=== PATIENT | female | born 1955 | race African-American/Black ===

== ENCOUNTER → 2020-06-07 | Outpatient (CLI) | payer OTHER, BC ==
[~2020-06-07] MED LIST: BIOTIN1 M1 PO; FISH OIL 1,0001 EAC9 PO; REPATHA SU140 MG/1 M SUBQ; VITAMIN D310 MC2 PO; VITAMIN E1000 UNIT PO; ZANAFLEX4 M1 PO
== END ==
LOC: SJCVCIMAG 07:24
PROVIDERS: ATTEND Internal Medicine
DX: R06.00 Dyspnea, unspecified (principal); R53.83 Other fatigue; R00.2 Palpitations; R00.1 Bradycardia, unspecified; E78.5 Hyperlipidemia, unspecified; Z79.891 Long term (current) use of opiate analgesic

== ENCOUNTER → 2020-06-13 | Outpatient (CLI) | payer OTHER, BC | LOC: LAB 14:24 | PROVIDERS: ATTEND Internal Medicine Cardiovascular Disease | DX: Z01.812 Encounter for preprocedural laboratory examination (principal); Z20.822 Contact with and (suspected) exposure to COVID-19 ==

== ENCOUNTER → 2020-06-18 | Outpatient (CLI) | payer OTHER, BC ==
[~2020-06-18] VITALS: Ht 160 cm; Wt 75.7 kg
--- NOTE | ~2020-06-18 | P ---
[facility] [place] [address] PROCEDURE REPORT Name: KAROLYN BURNS Room #: REG DEBBIE SonjaSonja#: [id number] Admission: 06/18/20 Attend Phys: Jorge Santiago MD Discharge: Date of : 55 Report #: [id number] THIS REPORT FOR: cc: Fabi Crenshaw MD, Julie MD Couchonnal,Jorge Kirby MD ~ DATE OF SERVICE: 06/18/2020 PROCEDURES PERFORMED: 1. SVT ablation, CPT code 33178. 2. Left atrial pacing and recording, CPT code 95835. 3. Program stimulation pacing after IV drug infusion, CPT code 68674. 4. A 3D mapping, CPT code 01301. PREPROCEDURE DIAGNOSIS: Supraventricular tachycardia. 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 HISTORY: The patient is a 64-year-old with history of longstanding SVT that is adenosine sensitive here for SVT ablation. ANESTHESIA: The patient underwent MAC anesthesia with no anesthesia related complications. DESCRIPTION OF PROCEDURE: The patient underwent informed consent. We discussed the details of the procedure including the risks, which include but not limited to bleeding, vascular damage, stroke, AK as well as cardiac perforation, and damage to the shinnecock conduction system requiring pacemaker. She understood these risks and is willing to proceed. The patient was brought to EP laboratory in fasting and sedated state, prepped and draped in a sterile fashion. I injected lidocaine bilaterally and obtained access to the bilateral femoral veins placing an 8 and 6-Khmer short sheath in the right femoral vein and a 7-Khmer short sheath in the left femoral vein. Under fluoroscopy, I placed 3 quadripolar catheters at the HRA, His and RV positions and a decapolar catheter easily in the coronary sinus for left atrial pacing and recording. At baseline, the patient was in sinus rhythm with a sinus cycle length of 660 milliseconds, TX interval 155 milliseconds, QRS duration 94 milliseconds, QT interval 350 milliseconds, AH interval 96 milliseconds, and HV interval 42 milliseconds. While pacing catheter she went into SVT, I did not have all my catheters at bedside. I tried to entrain this and terminated the tachycardia. Next, a basic EP study was performed and AV block was noted at 290 milliseconds. Atrial ERP was noted at 210 milliseconds at a [address] cycle length and I was able to reproducibly induce SVT with double atrial extrastimuli with a drive train of 500 milliseconds and an S2 at 270 and [facility] [address] [place] [address] PROCEDURE REPORT Name: KAROLYN BURNS Room #: REG JOSELITOBernadine Gardner#: [id number] Admission: 06/18/20 Attend Phys: Jorge Santiago MD Discharge: Date of : 55 Report #: [id number] at 250 milliseconds. This SVT demonstrated a cycle length of 370 milliseconds and the septal VA time of 100 milliseconds and the activation pattern consistent with an AV tara reentrant tachycardia. Again, I tried multiple times to entrain this, but it would terminate the tachycardia. Ventricular pacing was performed and VA block was noted at 330 milliseconds and ventricular ERP was noted at 230 milliseconds at a [address] cycle length. Isoproterenol was initiated at 1 mcg per minute. AV block was noted at 260 milliseconds. With double atrial extrastimuli, the patient again went into SVT and this time, I was able to easily entrain the tachycardia and there was a consistent VAHV response and a septal VA time of 200 milliseconds, which is consistent with atypical AV tara reentrant tachycardia. 3D MAPPING AND ABLATION: Next, a 4 mm ablation catheter and SR0 sheath was placed in the right atrium. A 3D geometry of the right atrium was created. Ablation was performed at 50 bates and 55 degrees. A total of 6 lesions were performed; 4 of these lesions had nice slow junctionals. At the last lesion, there was no further junctionals at the side where junctionals were occurring previously. POST-ABLATION TESTING: Isoproterenol was turned on at 1 mcg per minute. AV block was noted at 260 milliseconds. Single and double atrial extrastimuli were delivered and no SVT was induced. Isoproterenol was turned off. AV block was noted at 270 milliseconds. Atrial ERP was noted at 200 milliseconds at a [address] cycle length and VA block was noted at 400 milliseconds. Aggressive atrial and ventricular pacing maneuvers were performed and SVT was no longer inducible. As such, the procedure was concluded. Post-ablation, the patient was in sinus rhythm with sinus cycle length of 555 milliseconds, TX interval of 130 milliseconds, QRS duration 95 milliseconds, QT interval 340 milliseconds, AH interval 90 and HV interval 40. As such, catheters and sheaths were pulled. Hemostasis was obtained. The patient awoke neurologically and hemodynamically intact. No complications and no significant bleeding. CONCLUSIONS: 1. Successful ablation of atypical AV tara reentry tachycardia. 2. Normal SA tara function. 3. Normal AV tara function. 4. Normal His-Purkinje function. 5. No other inducible arrhythmias on or off isoproterenol. By: [id number] Jorge Santiago MD /nt
[2020-06-18 07:07] VITALS: BP 147/76
[2020-06-18 07:33] LABS: ABSOLUTE NEUTROPHILS 2.7 thou/uL (1.4-8.2); BASOPHILS 0.7 % (0.0-2.0); EOSINOPHILS 1.4 % (0.0-3.0); HEMATOCRIT 41.3 % (37.0-47.0); HEMOGLOBIN 13.3 gm/dL (12.0-15.0); MCH 29.8 pg (26.0-34.0); MCHC 32.1 g/dL (28.0-37.0); MONOCYTES 9.2 % (1.0-8.0); PLATELET COUNT 210 thou/uL (150-400); POLYS 34.7 % (36.0-66.0); RBC 4.44 mil/uL (4.20-5.00); RDW 13.5 % (10.5-14.5); WBC 7.8 thou/uL (4.0-11.0)
[2020-06-18 07:35] LABS: CALCIUM 9.9 mg/dL (8.5-10.1); CREATININE 0.9 mg/dL (0.6-1.0); POTASSIUM 3.8 mmol/L (3.5-5.1)
[2020-06-18 07:40] LABS: INR 0.95; PROTIME 10.4 Seconds (9.3-11.4)
[2020-06-18 07:41] LABS: ALBUMIN 3.9 g/dL (3.4-5.0); TOTAL BILIRUBIN 0.4 mg/dL (0.2-1.0); TOTAL PROTEIN 7.2 g/dL (6.4-8.2)
== END | disposition home or self-care (01) ==
LOC: CATH 09:53
PROVIDERS: ATTEND Internal Medicine Cardiovascular Disease
DX: I47.1 Supraventricular tachycardia (principal); Z98.890 Other specified postprocedural states; Z90.710 Acquired absence of both cervix and uterus; Z96.652 Presence of left artificial knee joint; Z87.891 Personal history of nicotine dependence; Z82.49 Family history of ischemic heart disease and other diseases of the circulatory system
CPT/HCPCS: 62110; 62900; 70005

== ENCOUNTER → 2020-09-19 | Outpatient (CLI) | payer OTHER, BC | LOC: SJCVC 15:15 | PROVIDERS: ATTEND Internal Medicine Cardiovascular Disease | DX: R94.31 Abnormal electrocardiogram [ECG] [EKG] (principal); I47.1 Supraventricular tachycardia; E78.5 Hyperlipidemia, unspecified; Z88.8 Allergy status to other drugs, medicaments and biological substances; Z90.49 Acquired absence of other specified parts of digestive tract; Z79.899 Other long term (current) drug therapy; Z87.891 Personal history of nicotine dependence; Z82.49 Family history of ischemic heart disease and other diseases of the circulatory system ==